=== PATIENT | male | born 1975 | race Caucasian/White ===

== ENCOUNTER 2024-07-04 02:51 | Day surgery (SDC) | payer OTHER, SELFPAY ==
[2024-06-20 09:00] VITALS: BMI 24.3
--- NOTE | 2024-07-04 10:37 | P.PNAN_ITS ---
Anes - Initial Pre Proc Eval Procedure: Operation Date: 07/04/24 13:30 Proposed Procedures p Screening Colonoscopy - Levi Thomas MD Date/Time: 07/04/24 10:37 Surgeon: Levi Thomas MD Pre Op Diagnosis: Neoplasm screening Patient Data Age: 49 Gender: M Height: 1.68 m Weight: 68.3 kg Allergies Allergy/AdvReac Type Severity Reaction Status Date / Time No Known Allergies Allergy Verified 07/04/24 11:19 Home Medications Medication Instructions Recorded Confirmed Type bupropion HCl 300 mg 24 hr tablet, 300 mg PO DAILY 06/20/24 07/04/24 History extended release Patient hx anesthesia problems: none Family hx anesthesia problems: none Results Review: All pre-operative results and documents have been reviewed as part of the pre- operative evaluation. [facility] Past Medical History Medical History Colon cancer screening Depression Social History Social History (Updated 07/04/24 @ 11:35 by Elier Thompson DO) Smoking packs per day: 1 Smoking cigarettes per day: 20.0 Years smoked: 18 Smoking pack-years: 18.00 Smoking status: Current every day smoker Tobacco type: cigarettes Substance use: current Substance use type: marijuana Other substance usage details: daily Last use: 06/19/2024 Living arrangements: other Additional living arrangements comments: with sp Anes - Eval Final PreProcedure Day of Procedure 07/04/24 10:37 Patient weight: normal Heart: regular rate and rhythm Lungs: clear to auscultation and normal air movement Airway: Mallampati scale class II Neurological: alert and oriented Last oral intake: >/= 8 hours ASA classification: III Emergent: no Anesthetic plan: proceed Anesthesia type and monitoring: general GIVS and standard monitoring Results Review: All pre-operative results and documents have been reviewed as part of the pre- operative evaluation. Informed Consent: The patient's anesthetic plan and its attendant risks and benefits were discussed with the patient/family/POA. Questions were solicited and answers provided to the satisfaction of the patient/family/POA.
[2024-07-04 11:21] VITALS: BP 119/85; PULSE 85; RESP 16; TEMP 36.8
--- NOTE | 2024-07-04 11:26 | PM.HPGS ---
History of Present Illness History of Present Illness Consent: Risks, benefits, and alternatives have been discussed and questions answered. Patient agrees to proceed with procedure. Chief complaint: Neoplasm screening Narrative: Brandt Isbell is a 49 year old male here for first screening colonoscopy Review of Systems Review of Systems: All systems reviewed & are unremarkable except as noted in HPI and below PMFSH Past Medical History Medical History (Updated 07/04/24 @ 11:29 by Lvei Thomas MD) Colon cancer screening Depression Social History Social History Smoking packs per day: 1 Smoking cigarettes per day: 20.0 Years smoked: 18 Smoking pack-years: 18.00 Smoking status: Current every day smoker Tobacco type: cigarettes Substance use: current Substance use type: marijuana Last use: 06/19/2024 Living arrangements: other Additional living arrangements comments: with sp Meds Home Medications and Allergies Home Medications Medication Instructions Recorded Confirmed Type bupropion HCl 300 mg 24 hr tablet, 300 mg PO DAILY 06/20/24 07/04/24 History extended release Allergies Allergy/AdvReac Type Severity Reaction Status Date / Time No Known Allergies Allergy Verified 07/04/24 11:19 Exam Const: General: comfortable and no acute distress HENMT: Face/Nose/Sinus: Normal nares present Eyes: General: appearance normal, both eyes and all related structures Neck: Neck: no JVD Resp: Auscultation: clear to auscultation bilaterally Cardio: Rate: regular rate Rhythm: regular rhythm GI: Inspection: non-distended GI Palp: Yes Soft to palpation Skin: General skin exam: normal color Neuro: General: gait normal Speech: normal speech Extrem: General: normal to inspection Psych: Mental Status: mental status grossly normal Assessment and Plan Assessment and plan (1) Colon cancer screening: Code(s): Z12.11 - Encounter for screening for malignant neoplasm of colon Status: Acute Assessment and Plan: colonoscopy
--- NOTE | 2024-07-04 11:31 | P.PNAN_ITS ---
Anes - Initial Pre Proc Eval Procedure: Operation Date: 07/04/24 13:30 Proposed Procedures p Screening Colonoscopy - Levi Thomas MD Date/Time: 07/04/24 11:31 Surgeon: Levi Thomas MD Pre Op Diagnosis: Neoplasm screening Patient Data Age: 49 Gender: M Height: 1.68 m Weight: 68.3 kg Last Vital Signs Temp 36.8 C 07/04/24 11:21 Pulse 85 07/04/24 11:21 Resp 16 07/04/24 11:21 BP 119/85 07/04/24 11:21 O2 Del Method Room Air 07/04/24 11:21 Allergies Allergy/AdvReac Type Severity Reaction Status Date / Time No Known Allergies Allergy Verified 07/04/24 11:19 Home Medications Medication Instructions Recorded Confirmed Type bupropion HCl 300 mg 24 hr tablet, 300 mg PO DAILY 06/20/24 07/04/24 History extended release Patient hx anesthesia problems: none Family hx anesthesia problems: none Results Review: All pre-operative results and documents have been reviewed as part of the pre- operative evaluation. [facility] Past Medical History Medical History Colon cancer screening Depression Social History Social History Smoking packs per day: 1 Smoking cigarettes per day: 20.0 Years smoked: 18 Smoking pack-years: 18.00 Smoking status: Current every day smoker Tobacco type: cigarettes Substance use: current Substance use type: marijuana Last use: 06/19/2024 Living arrangements: other Additional living arrangements comments: with sp Anes - Eval Final PreProcedure Day of Procedure 07/04/24 11:31 Patient weight: normal Heart: regular rate and rhythm Lungs: clear to auscultation Airway: Mallampati scale class II Neurological: alert and oriented Last oral intake: >/= 8 hours ASA classification: II Emergent: no Anesthetic plan: proceed Anesthesia type and monitoring: general GIVS Results Review: All pre-operative results and documents have been reviewed as part of the pre- operative evaluation. Informed Consent: The patient's anesthetic plan and its attendant risks and benefits were discussed with the patient/family/POA. Questions were solicited and answers provided to the satisfaction of the patient/family/POA.
[2024-07-04] MEDS: LACTATED RINGERS 1,000 ML 150 ML IV CONT (11:33)
[2024-07-04 11:51] VITALS: BP 106/75; PULSE 76; RESP 22; O2SAT 97
[2024-07-04 12:01] VITALS: BP 106/77; PULSE 74; RESP 20; O2SAT 97
[2024-07-04 12:11] VITALS: BP 120/87; PULSE 74; RESP 20; O2SAT 96
== END 2024-07-04 12:27 | disposition home or self-care (01) ==
PROVIDERS: Visit Provider Internal Medicine Gastroenterology
PROC: 0DJD8ZZ Inspection of Lower Intestinal Tract, Via Natural or Artificial Opening Endoscopic (ICD-10-PCS; CPT 45378; principal; 2024-07-04 13:30)
DX: Z12.11 Encounter for screening for malignant neoplasm of colon (principal); D12.0 Benign neoplasm of cecum; F32.A Depression, unspecified; F17.210 Nicotine dependence, cigarettes, uncomplicated; F12.90 Cannabis use, unspecified, uncomplicated
CPT/HCPCS: 45385; 88305; J2704; J7120

== ENCOUNTER 2024-07-04 18:33 | Emergency (ER) | payer OTHER, SELFPAY ==
[2024-07-04 18:41] VITALS: BP 131/98; PULSE 73; RESP 20; TEMP 36.6; O2SAT 100
== END 2024-07-04 20:38 | disposition left against medical advice (07) ==
DX: K62.5 Hemorrhage of anus and rectum (principal)
CPT/HCPCS: 99199